=== PATIENT | female | born 1990 | race Caucasian/White ===

== ENCOUNTER 2018-03-30 06:59 | Day surgery (SDC) | payer OTHER ==
[2018-03-30] MEDS ORDERED: DESFLURANE 15 MIN (07:00)
[2018-03-30] MEDS ORDERED: METOCLOPRAMIDE 10 MG INJ IV (09:30)
[2018-03-30] MEDS ORDERED: FENTAnyl 50 MCG/ML VIAL IV ×2 (09:30)
[2018-03-30] MEDS ORDERED: HYDROmorphONE 1 MG/5 ML IV SYRINGE IV (09:30)
[2018-03-30] MEDS ORDERED: DIPHENHYDRAMINE 50 MG INJ IV (09:30)
[2018-03-30] MEDS ORDERED: MEPERIDINE 25 MG INJ IV (09:30)
[2018-03-30] MEDS ORDERED: ALBUTEROL 0.083% (NEB) 2.5 MG/3 ML AMP HHN (09:30)
[2018-03-30] MEDS ORDERED: ROPIVACAINE 0.5 % 30 ML VIAL (09:36)
[2018-03-30] MEDS ORDERED: FENTAnyl 50 MCG/ML VIAL ×2 (09:36→11:36)
[2018-03-30] MEDS ORDERED: LIDOCAINE 1% (MDV) 20 ML INJ (10:10)
[2018-03-30] MEDS ORDERED: PROPOFOL 20 ML (10:10)
[2018-03-30] MEDS ORDERED: SUGAMMADEX SODIUM 200 MG/2 ML VIAL IV (10:10)
[2018-03-30] MEDS ORDERED: CEFAZOLIN 1 GM INJ (10:10)
[2018-03-30] MEDS ORDERED: SUCCINYLCHOLINE CHLORIDE 100 MG/5 ML SYG IV (10:10)
[2018-03-30] MEDS ORDERED: ROCURONIUM 50 MG INJ (10:10)
[2018-03-30] MEDS: BUPIVACAINE 0.5%/EPI (SDV) 30 ML INJ (10:28)
[2018-03-30] MEDS: ONDANSETRON 4 MG INJ IV (11:49)
[2018-03-30] MEDS: HYDROmorphONE 1 MG/5 ML IV SYRINGE IV ×3 (11:50→12:22)
[2018-03-30] MEDS: KETOROLAC 30 MG INJ IV (13:18)
[2018-03-30] MEDS ORDERED: OXYCODONE/ACETAMINOPHEN (10/325) TAB PO (13:30)
[2018-03-30] MEDS ORDERED: OXYCODONE/ACETAMINOPHEN (5/325) TAB PO (13:30)
== END 2018-03-30 14:15 | disposition home or self-care (01) ==
LOC: SDS 06:59
DX: Z30.2 Encounter for sterilization (principal); E66.01 Morbid (severe) obesity due to excess calories; Z68.42 Body mass index [BMI] 45.0-49.9, adult
CPT/HCPCS: 58661; 84703; 88302